=== PATIENT | male | born 1940 ===

== ENCOUNTER → 2017-04-01 | Outpatient (CLI) | payer BC | LOC: SBRMNEURO 21:00 | PROVIDERS: ATTEND Internal Medicine Pulmonary Disease | DX: G47.31 Primary central sleep apnea (principal); G47.33 Obstructive sleep apnea (adult) (pediatric); G47.52 REM sleep behavior disorder ==

== ENCOUNTER → 2017-09-21 | Outpatient (CLI) | payer BC | DX: G47.31 Primary central sleep apnea (principal); G47.36 Sleep related hypoventilation in conditions classified elsewhere; G47.52 REM sleep behavior disorder; G47.61 Periodic limb movement disorder ==